=== PATIENT | male | born 1965 | race Caucasian/White ===

== ENCOUNTER 2019-01-03 08:13 | Emergency (ER) | payer OTHER ==
[~2019-01-03] VITALS: Ht 180.3 cm; Wt 72.7 kg
[2019-01-03 08:17] VITALS: BP 117/83; PULSE 84; RESP 18; Ht 180.3 cm; Wt 72.7 kg
== END 2019-01-03 09:23 | disposition home or self-care (01) ==
LOC: FTE 08:13
DX: T24.132A Burn of first degree of left lower leg, initial encounter (principal); L92.9 Granulomatous disorder of the skin and subcutaneous tissue, unspecified; L97.921 Non-pressure chronic ulcer of unspecified part of left lower leg limited to breakdown of skin; V29.9XXA Motorcycle rider (driver) (passenger) injured in unspecified traffic accident, initial encounter; X19.XXXA Contact with other heat and hot substances, initial encounter; Z59.0 Homelessness
CPT/HCPCS: 99282